=== PATIENT | female | born 1995 | race Caucasian/White ===

== ENCOUNTER 2016-10-16 21:57 | Emergency (ER) | payer OTHER, MEDICAID ==
[~2016-10-16] VITALS: Ht 157.5 cm; Wt 83.9 kg
[~2016-10-16 21:57] MED LIST: FERROUS SULFAT325 MG PO; NITROFURANTOIN100 M2 PO; PERCOCET 650 MG1 TAB PO; PREDNISONE 20MG20 MG PO; PRENATAL VITAMI1 TA3 PO; SPRINTEC 35 MCG1 TAB PO
[2016-10-16] MEDS ORDERED: PRENATAL PLUS1 TA1 PO (22:08)
[2016-10-16] MEDS ORDERED: ACETAMINOPHEN500 M3 PO (22:09)
[2016-10-16 22:19] LABS: HEMOGLOBIN 11.5 g/dL (12.2-16.2); LYMPH # 1.7 K/mm3 (0.7-4.5); LYMPH % 26.1 % (10-50.0)
[2016-10-16 22:39] LABS: BUN 11 mg/dL (7-18); GFR (ESTIMATED) 157 ML/MIN (59-)
--- NOTE | 2016-10-16 23:01 | Emergency Room Report ---
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 N Clinical Suspician of Infection? N Mental Status: 1 - Regular (Normal Baseline) Sepsis Risk:Low Sepsis Risk Have you (or family members/close friends) recently traveled outside the [place]? N If Yes, where/when: Have you had exposure to infectious disease within the past month? N TB? Other? Specify: Source patient, RN notes reviewed, family, old records Exam Limitations no limitations Comment pt with rt sided tingling chest pain since yesterday with no fever or cough or trauma - she is 14 weeks with no bleeding and also has headache with no neuro sx Cardiac Chest Pain Chest pain indicative of cardiac No Timing/Duration this evening Severity moderate ALLERGIES Coded Allergies: No Known Allergies (06/23/16) Home Medications Reported Medications MULTIVIT-MIN W/FE-FA ( Multivitamin Tablet) 1 TAB PO DAILY Acetaminophen (Acetaminophen Extra Strength) 650 MG PO Q6HP PRN PAIN History Medical History General CAD? No Angina: Yes CO: No Hypertension? No Hyperlipidemia? No CHF? No DVT? No PE? No COPD? No Asthma? No Anemia? No GERD? No Gastric ulcers? No GI Bleed? No Hernia? No Thyroid Problems? No Hypothyroidism? No CVA? No Seizures? No Diabetes? No Renal Insuffiency? No End Stage Renal Disease? No UTI? Yes Stones? No BPH? No GB Disease: Yes Nephritic Syndrome? No Asplenia? No Hepatitis? No Sickle Cell Disease? No Arthritis? No Migraines? Yes Cataracts? No Glaucoma? No MRSA? No HIV? No TB? No Anxiety? No Depression? No Cancer? No More? 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 Respiratory denies cough, denies shortness of breath, denies wheezing Cardiovascular see HPI, chest pain, denies syncope Gastrointestinal denies abdominal pain, denies diarrhea, denies vomiting Genitourinary denies: dysuria, frequency, hesitancy, hematuria. Musculoskeletal denies back pain, denies joint pain, denies joint swelling, denies neck pain Skin denies rash Psychiatric/Neurological see HPI, headache, denies seizure Physical Exam Vital Signs Vital Signs Date Time Temp Pulse Resp B/P Pulse O2 O2 Flow FiO2 Ox Delivery Rate 10/16 2240 94 18 112/59 99 10/16 2158 98.6 91 18 107/62 99 - WBC >12,000 or <4,000 or 10% bands? 2 or more SIRS Criteria Met? B/P:112/59 MAP:77 Creatinine >2.0? UA output<0.5ml/kg/hr for 2 hrs? Platelet count >100,000? Lactate >2.0mmol/1? INR >1.2 or PTT > than 60 sec? Evidence of Organ Dysfunction? Provider documented clinical suspician of infection? N Sepsis Criteria Count: 1 Sepsis Risk: Low Sepsis Risk General Appearance no apparent distress Eye Exam - bilateral eye PERRL, bilateral eye EOMI Ear, Nose, Throat normal ENT inspection Neck supple Respiratory Status No: respiratory distress. Lung Sounds bilateral: lungs clear. Cardiovascular regular rate/rhythm, no peripheral edema, no gallop, no JVD, no murmur, no rub Peripheral Pulses Pulses normal Yes Gastrointestinal soft, no organomegaly, no pulsatile mass, no guarding, no rebound Extremities no calf tenderness, no pedal edema Strength 4 Upper Ext (L), 4 Upper Ext (R), 4 Lower Ext (L), 4 Lower Ext (R) Neurologic alert, tail trimmer II-XII nml as tested, no motor/sensory deficits Reflexes Reflexes normal Yes Mental status normal mood/affect Skin no rash cons.w/shingles Medical Decision Making LABS/Meds/Orders Pt receiving controlled substance in ED? No Results/Orders Laboratory Tests 10/16/162204: Sodium 136, Potassium 3.8, Chloride 104, Carbon Dioxide 25, BUN 11, Creatinine 0.5 L, Estimated Creat Clear 238 H, Estimated GFR (MDRD) 157, Glucose 88, Calcium 8.6, Total Bilirubin 0.1 L, AST 17, ALT 28, Alkaline Phosphatase 47, Creatine Kinase 53, CK-MB (CK-2) Rel Index Pending, CK and CKMB Interp Pending, Troponin I < 0.02, Total Protein 6.8, Albumin 3.1 L, Globulin 3.7 H, Albumin/ Globulin Ratio 0.8 L, WBC 6.5, RBC 3.74 L, Hgb 11.5 L, Hct 34.0 L, MCV 90.9, RDW 13.8, Plt Count 324, MPV 8.9, Gran % 66.6, Gran # 4.3, Lymphocytes % 26.1, Monocytes % 5.1, Eosinophils % 1.5, Basophils % 0.6, Lymphocytes # 1.7, Monocytes # 0.3, Eosinophils # 0.1, Basophils # 0.0, PUBS MCHC 33.9, MCH 30.8 Current Medication Orders Sig/Sathish Start time Last Medication Dose Route Stop Time Status Admin Sodium Chloride 10 ML PRN PRN 10/16 2214 AC IV 10/17 2212 Orders Procedure Date/time Status 12 LEAD EKG-ELOISE (INITIAL) 10/16 2212 Active ELECTROCARDIOGRAM REQUEST 10/16 2212 Active IV SALINE LOCK 10/16 2212 Active PACKING CLERK 10/16 2212 Active CBC WITH AUTO DIFF 10/16 2212 Complete CARDIAC ENZYMES 10/16 2212 Active CHEM 12 PROFILE 10/16 2212 Active CM/EKG CM/veneer cutter Rhythm Normal Sinus Rhythm EKG no evid. of ischemic chgs Departure Departure Time of Disposition 2255 Disposition DC Home or Self Care(routine) Clinical Impression Primary Impression: Chest pain Qualifiers: Chest pain type: unspecified Qualified Code: R07.9 - Chest pain, unspecified Secondary Impressions: Headache Qualifiers: Headache type: unspecified Headache chronicity pattern: acute headache Intractability: not intractable Qualified Code: R51 - Headache Qualifiers: Weeks of gestation: 14 weeks Qualified Code: Z3A.14 - 14 weeks gestation of Condition STABLE Referrals Qasim Hinson MD (Family) Patient Instructions DI for -- Discomforts and Remedies Additional Instructions call dr mayfield for follow up and pcp Discharge Counseling Counseled pt/family regarding diagnosis, test results, medications/RX, follow up needs ED Critical Care Critical Care No at [phone]
--- NOTE | 2016-10-16 23:01 | Emergency Room Report ---
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 N Clinical Suspician of Infection? N Mental Status: 1 - Regular (Normal Baseline) Sepsis Risk:Low Sepsis Risk Have you (or family members/close friends) recently traveled outside the [place]? N If Yes, where/when: Have you had exposure to infectious disease within the past month? N TB? Other? Specify: Source patient, RN notes reviewed, family, old records Exam Limitations no limitations Comment pt with rt sided tingling chest pain since yesterday with no fever or cough or trauma - she is 14 weeks with no bleeding and also has headache with no neuro sx Cardiac Chest Pain Chest pain indicative of cardiac No Timing/Duration this evening Severity moderate ALLERGIES Coded Allergies: No Known Allergies (06/23/16) Home Medications Reported Medications MULTIVIT-MIN W/FE-FA ( Multivitamin Tablet) 1 TAB PO DAILY Acetaminophen (Acetaminophen Extra Strength) 650 MG PO Q6HP PRN PAIN History Medical History General CAD? No Angina: Yes PR: No Hypertension? No Hyperlipidemia? No CHF? No DVT? No PE? No COPD? No Asthma? No Anemia? No GERD? No Gastric ulcers? No GI Bleed? No Hernia? No Thyroid Problems? No Hypothyroidism? No CVA? No Seizures? No Diabetes? No Renal Insuffiency? No End Stage Renal Disease? No UTI? Yes Stones? No BPH? No GB Disease: Yes Nephritic Syndrome? No Asplenia? No Hepatitis? No Sickle Cell Disease? No Arthritis? No Migraines? Yes Cataracts? No Glaucoma? No MRSA? No HIV? No TB? No Anxiety? No Depression? No Cancer? No More? 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 Respiratory denies cough, denies shortness of breath, denies wheezing Cardiovascular see HPI, chest pain, denies syncope Gastrointestinal denies abdominal pain, denies diarrhea, denies vomiting Genitourinary denies: dysuria, frequency, hesitancy, hematuria. Musculoskeletal denies back pain, denies joint pain, denies joint swelling, denies neck pain Skin denies rash Psychiatric/Neurological see HPI, headache, denies seizure Physical Exam Vital Signs Vital Signs Date Time Temp Pulse Resp B/P Pulse O2 O2 Flow FiO2 Ox Delivery Rate 10/16 2240 94 18 112/59 99 10/16 2158 98.6 91 18 107/62 99 - WBC >12,000 or <4,000 or 10% bands? 2 or more SIRS Criteria Met? B/P:112/59 MAP:77 Creatinine >2.0? UA output<0.5ml/kg/hr for 2 hrs? Platelet count >100,000? Lactate >2.0mmol/1? INR >1.2 or PTT > than 60 sec? Evidence of Organ Dysfunction? Provider documented clinical suspician of infection? N Sepsis Criteria Count: 1 Sepsis Risk: Low Sepsis Risk General Appearance no apparent distress Eye Exam - bilateral eye PERRL, bilateral eye EOMI Ear, Nose, Throat normal ENT inspection Neck supple Respiratory Status No: respiratory distress. Lung Sounds bilateral: lungs clear. Cardiovascular regular rate/rhythm, no peripheral edema, no gallop, no JVD, no murmur, no rub Peripheral Pulses Pulses normal Yes Gastrointestinal soft, no organomegaly, no pulsatile mass, no guarding, no rebound Extremities no calf tenderness, no pedal edema Strength 4 Upper Ext (L), 4 Upper Ext (R), 4 Lower Ext (L), 4 Lower Ext (R) Neurologic alert, senior quality assurance specialist II-XII nml as tested, no motor/sensory deficits Reflexes Reflexes normal Yes Mental status normal mood/affect Skin no rash cons.w/shingles Medical Decision Making LABS/Meds/Orders Pt receiving controlled substance in ED? No Results/Orders Laboratory Tests 10/16/162204: Sodium 136, Potassium 3.8, Chloride 104, Carbon Dioxide 25, BUN 11, Creatinine 0.5 L, Estimated Creat Clear 238 H, Estimated GFR (MDRD) 157, Glucose 88, Calcium 8.6, Total Bilirubin 0.1 L, AST 17, ALT 28, Alkaline Phosphatase 47, Creatine Kinase 53, CK-MB (CK-2) Rel Index Pending, CK and CKMB Interp Pending, Troponin I < 0.02, Total Protein 6.8, Albumin 3.1 L, Globulin 3.7 H, Albumin/ Globulin Ratio 0.8 L, WBC 6.5, RBC 3.74 L, Hgb 11.5 L, Hct 34.0 L, MCV 90.9, RDW 13.8, Plt Count 324, MPV 8.9, Gran % 66.6, Gran # 4.3, Lymphocytes % 26.1, Monocytes % 5.1, Eosinophils % 1.5, Basophils % 0.6, Lymphocytes # 1.7, Monocytes # 0.3, Eosinophils # 0.1, Basophils # 0.0, PUBS MCHC 33.9, MCH 30.8 Current Medication Orders Sig/Sathish Start time Last Medication Dose Route Stop Time Status Admin Sodium Chloride 10 ML PRN PRN 10/16 2214 AC IV 10/17 2212 Orders Procedure Date/time Status 12 LEAD EKG-ELOISE (INITIAL) 10/16 2212 Active ELECTROCARDIOGRAM REQUEST 10/16 2212 Active IV SALINE LOCK 10/16 2212 Active TRUCK BODY REPAIRER 10/16 2212 Active CBC WITH AUTO DIFF 10/16 2212 Complete CARDIAC ENZYMES 10/16 2212 Active CHEM 12 PROFILE 10/16 2212 Active CM/EKG CM/real estate clerk Rhythm Normal Sinus Rhythm EKG no evid. of ischemic chgs Departure Departure Time of Disposition 2255 Disposition DC Home or Self Care(routine) Clinical Impression Primary Impression: Chest pain Qualifiers: Chest pain type: unspecified Qualified Code: R07.9 - Chest pain, unspecified Secondary Impressions: Headache Qualifiers: Headache type: unspecified Headache chronicity pattern: acute headache Intractability: not intractable Qualified Code: R51 - Headache Qualifiers: Weeks of gestation: 14 weeks Qualified Code: Z3A.14 - 14 weeks gestation of Condition STABLE Referrals Qasim Hinson MD (Family) Patient Instructions DI for -- Discomforts and Remedies Additional Instructions call dr mayfield for follow up and pcp Discharge Counseling Counseled pt/family regarding diagnosis, test results, medications/RX, follow up needs ED Critical Care Critical Care No at [id number]
[2016-10-16 23:07] VITALS: BP 106/51
[2016-11-04] MEDS ORDERED: KEFLEX 500MG.500 MG PO (09:40)
[2017-01-18] MEDS ORDERED: TERAZOL 7 VAG C45 GM VG (17:47)
== END 2016-10-16 23:10 | disposition home or self-care (01) ==
LOC: ER 21:57
PROVIDERS: Emergency Medicine
DX: R07.9 Chest pain, unspecified (principal); R51 Headache; Z3A.14 14 weeks gestation of pregnancy

== ENCOUNTER 2017-04-09 00:24 | Outpatient (CLI) | payer OTHER, MEDICAID ==
[~2017-04-09] VITALS: Ht 157.5 cm; Wt 98.4 kg
[~2017-04-09 00:24] MED LIST changes: +ACETAMINOPHEN500 M3 PO; +KEFLEX 500MG.500 MG PO; +NATURAL IRON65 MG PO; +PRENATAL PLUS1 TA1 PO; +TERAZOL 7 VAG C45 GM VG
[2017-04-09 00:46] LABS: URINE BILIRUBIN - DIPSTICK NEGATIVE (NEG); URINE BLOOD 1+ (NEG)
[2017-04-09 00:47] VITALS: BP 126/75
[2017-04-13] MEDS ORDERED: PERCOCET 5/3251 EACH PO (08:02)
== END 2017-04-09 03:08 | disposition home or self-care (01) ==
LOC: OBOUT 00:24 → OB 00:24 → OBOUT 03:08
PROVIDERS: Obstetrics & Gynecology
DX: O60.03 Preterm labor without delivery, third trimester (principal); Z3A.37 37 weeks gestation of pregnancy
CPT/HCPCS: J0290